=== PATIENT | male | born 1935 | race Caucasian/White ===

== ENCOUNTER 2018-11-07 11:53 | Emergency (ER) | payer MEDICARE ==
[~2018-11-07] VITALS: Ht 175.3 cm; Wt 98.4 kg
[2018-11-07] MEDS ORDERED: CALCTAB89 PO (12:11)
[2018-11-07] MEDS ORDERED: VITA500C24 PO (12:11)
[2018-11-07] MEDS ORDERED: PRAV40TA2 PO (12:11)
[2018-11-07] MEDS ORDERED: FLOM0.4C39 PO (12:11)
[2018-11-07] MEDS ORDERED: FINA5TAB2 PO (12:11)
[2018-11-07] MEDS ORDERED: LIDOCAINE 2% 5ML JELLY UROJET TOP ONE (13:45)
[2018-11-07 14:16] VITALS: BP 129/78
== END 2018-11-07 14:18 | disposition home or self-care (01) ==
LOC: M ED 11:53
DX: R30.0 Dysuria (principal); R33.9 Retention of urine, unspecified; R31.29 Other microscopic hematuria; N40.0 Benign prostatic hyperplasia without lower urinary tract symptoms; I10 Essential (primary) hypertension; I09.9 Rheumatic heart disease, unspecified; Z86.79 Personal history of other diseases of the circulatory system; Z85.820 Personal history of malignant melanoma of skin; Z79.899 Other long term (current) drug therapy; Z88.0 Allergy status to penicillin; Z88.8 Allergy status to other drugs, medicaments and biological substances

== ENCOUNTER 2018-11-11 08:33 | Emergency (ER) | payer MEDICARE ==
[~2018-11-11] VITALS: Ht 175.3 cm; Wt 97.7 kg
[~2018-11-11 08:33] MED LIST: CALCTAB89 PO; FINA5TAB2 PO; FLOM0.4C39 PO; PRAV40TA2 PO; VITA500C24 PO
[2018-11-11] MEDS ORDERED: NS 1,000 ML IV ONE (09:30)
[2018-11-11 09:49] LABS: BASO % 0.2 % (0.0-1.0); EOS # 0.1 10^3/uL (0.0-0.50); EOS % 0.9 % (0.0-3.0); HEMATOCRIT 38.4 % (42.0-52.0); HEMOGLOBIN 13.1 g/dl (13.5-17.5); LYMPH # 1.4 10^3/uL (1.5-4.5); LYMPH % 16.6 % (24.0-44.0); MEAN CORPUSCULAR HEMOGLOBIN 30.1 pg (27.0-33.0); MEAN CORPUSCULAR HGB CONC 34.1 g/dl (32.0-36.5); MEAN CORPUSCULAR VOLUME 88.3 fl (80.0-96.0); MONO # 0.7 10^3/uL (0.0-0.8); NEUTROPHILS # 6.4 10^3/uL (1.8-7.7); PLATELET COUNT, AUTOMATED 210 10^3/uL (150-450); RED BLOOD COUNT 4.35 10^6/uL (4.30-6.10); WHITE BLOOD COUNT 8.7 10^3/uL (4.0-10.0)
[2018-11-11 09:56] LABS: APPEARANCE, URINE CLOUDY (CLEAR); BACTERIA, URINE AUTO 1+ (NEGATIVE); BILIRUBIN, URINE AUTO NEGATIVE (NEGATIVE); BLOOD, URINE BLOOD 3+ (NEGATIVE); COLOR, URINE AMBER (YELLOW); GLUCOSE, URINE (UA) AUTO NEGATIVE (NEGATIVE); KETONE, URINE AUTO TRACE mg/dL (NEGATIVE); LEUKOCYTE ESTERASE, URINE AUTO 3+ (NEGATIVE); MUCUS, URINE SMALL (NEGATIVE); NITRITE, URINE AUTO NEGATIVE (NEGATIVE); PROTEIN, URINE AUTO 2+ mg/dL (NEGATIVE); RBC, URINE AUTO TNTC /HPF (0-3); SPECIFIC GRAVITY URINE AUTO 1.019 (1.002-1.035); SQUAMOUS EPITHELIAL CELL UR AU 0 /HPF (0-6); WBC, URINE AUTO TNTC /HPF (0-3)
[2018-11-11 10:10] LABS: BLOOD UREA NITROGEN 13 MG/DL (7-18); CALCIUM LEVEL 8.6 MG/DL (8.8-10.2); CARBON DIOXIDE LEVEL 28 MEQ/L (21-32); CHLORIDE LEVEL 107 MEQ/L (98-107); CREATININE FOR GFR 0.98 MG/DL (0.70-1.30); GLOMERULAR FILTRATION RATE > 60.0 (>35); GLUCOSE, FASTING 91 MG/DL (70-100); POTASSIUM SERUM 4.2 MEQ/L (3.5-5.1); SODIUM LEVEL 142 MEQ/L (136-145)
[2018-11-11 10:49] LABS: INR 1.09; PROTHROMBIN TIME 13.8 SECONDS (11.8-14.0)
[2018-11-11 13:19] VITALS: BP 113/62
[2018-11-11] MEDS ORDERED: MACR100C43 PO (13:31)
== END 2018-11-11 14:03 | disposition home or self-care (01) ==
LOC: M ED 08:33
DX: N32.89 Other specified disorders of bladder (principal); T83.098A Other mechanical complication of other urinary catheter, initial encounter; X58.XXXA Exposure to other specified factors, initial encounter; Y92.89 Other specified places as the place of occurrence of the external cause; N40.0 Benign prostatic hyperplasia without lower urinary tract symptoms; Z79.899 Other long term (current) drug therapy; Z88.0 Allergy status to penicillin; Z88.1 Allergy status to other antibiotic agents

== ENCOUNTER → 2018-11-29 | Outpatient (CLI) | payer MEDICARE ==
[~2018-11-29] MED LIST changes: +MACR100C43 PO
--- NOTE | 2018-11-29 15:12 | REP ---
Clinical: Benign prostatic hypertrophy with urinary retention. Technique: Real time lawton scale ultrasound examination using curved array transducer. Findings: The kidneys are normal in reniform shape and demonstrate cortical thinning with increased central sinus fat consistent with chronic renal disease. No hydronephrosis, nephrolithiasis, cystic or renal mass lesion appreciated. Right kidney measures 10.3 x 5.9 x 5.9 cm. Left kidney measures 11.7 x 5.7 x 5.6 cm. Valdez catheter identified within the bladder. Prostate gland is heterogeneous and enlarged. Impression: Evidence for chronic medical renal disease. Electronically Signed by Golden Acosta MD 11/29/2018 03:05 P
== END ==
LOC: M RAD 13:29 → M LAB 13:29
PROVIDERS: ATTEND Urology
DX: N40.0 Benign prostatic hyperplasia without lower urinary tract symptoms (principal)
CPT/HCPCS: 36415; 76775; G0103

== ENCOUNTER → 2018-12-13 | Outpatient (CLI) | payer MEDICARE ==
--- NOTE | 2018-12-13 18:37 | REP ---
PROSTATE ULTRASOUND: Real-time sonographic evaluation of the prostate is performed utilizing transrectal probe. The prostate measures 7.4 x 6.3 x 6.1 cm, significantly enlarged, with total volume of 147 mL. Echo texture is diffusely heterogenous. Scattered calcifications and small cysts are noted. Seminal vesicles appear symmetrical. IMPRESSION: Marked enlargement of the prostate. Electronically Signed by Sam Raymond MD 12/15/2018 04:33 P
== END ==
LOC: M SMT PRO 09:51
PROVIDERS: ATTEND Urology
DX: R33.9 Retention of urine, unspecified (principal); N40.1 Benign prostatic hyperplasia with lower urinary tract symptoms
CPT/HCPCS: 76872; G0463

== ENCOUNTER 2019-01-05 10:16 | Day surgery (SDC) | payer MEDICARE ==
[~2019-01-05] VITALS: Ht 188 cm; Wt 90.7 kg
[~2019-01-05 10:16] MED LIST changes: +CALC-333 PO; +COLA100C5 PO; +LIDOCAINE 1% MDV 20ML VIAL SQ PRN; +LR 1,000 ML IV ONE
[2019-01-05] MEDS ORDERED: BUPIVACAINE HCL 0.25% 30 ML VIAL As Ordered ONE (12:15)
[2019-01-05] MEDS ORDERED: LIDOCAINE 1% SDV INJ 30 ML VIAL As Ordered ONE (12:15)
[2019-01-05] MEDS ORDERED: MIDAZOLAM INJ 2 MG/2 ML VIAL (J2250) As Ordered ONE (12:42)
[2019-01-05] MEDS ORDERED: LIDOCAINE 2% INJ 100 MG/5 ML SDV (FOR ANES.) As Ordered ONE (12:42)
[2019-01-05] MEDS ORDERED: fentaNYL 100 MCG/2 ML INJECTION (J3010) As Ordered ONE (12:42)
[2019-01-05] MEDS ORDERED: PROPOFOL 200 MG/20 ML VIAL As Ordered ONE (12:42)
[2019-01-05] MEDS ORDERED: ONDANSETRON 4MG/2ML VIAL (J2405) As Ordered ONE (12:42)
[2019-01-05] MEDS ORDERED: ePHEDrine SULFATE 25 MG/5 ML(5MG/ML) SYRINGE As Ordered ONE (12:45)
--- NOTE | 2019-01-05 13:20 | ROOPDOC ---
[facility] Report Of Operation Report of Operation DATE OF PROCEDURE: 01/05/19 PREPROCEDURE DIAGNOSES: Elevated Prostate Specific Antigen (PSA), Abnormal Prostate Exam. POSTPROCEDURE DIAGNOSES: Elevated Prostate Specific Antigen (PSA), Abnormal Prostate Exam. PROCEDURE: Transrectal Ultrasound-guided Prostate Biopsy. SURGEON: Franklin Maguire MD ENFORCEMENT SAFETY OFFICER: None ANESTHESIA: Monitored Anesthesia Care. OPERATIVE INDICATIONS: This is an 83 year old male with an elevated PSA of 111 and an abnormal prostate exam. Due to severe discomfort while attempting a prostate biopsy in office, it was recommended that he be brought to the operating room to have it done. He is here today for this procedure. DESCRIPTION OF PROCEDURE: The patient was placed in the left lateral position. A transrectal ultrasound probe was placed into the rectum. Subsequently the ultrasonologist measured the dimensions of the prostate. Then 12 core biopsies of the prostate were obtained using a disposable biopsy gun, 6 each from the right and 6 from the left, 2 from the base, 2 from the mid zone and 2 from the apex. There were no complications and the patient tolerated the procedure well. He was taken to the recovery room in stable condition. ESTIMATED BLOOD LOSS: Approximately 5 mL. COMPLICATIONS: None. SPECIMENS: Prostate biopsies. PLAN: The patient will follow up in clinic next week to discuss pathology results. FRANKLIN MAGUIRE MD Jan 05, 2019 13:20
[2019-01-05 14:00] VITALS: BP 97/53
--- NOTE | 2019-01-05 14:12 | REP ---
TRANSRECTAL PROSTATE ULTRASOUND WITH ULTRASOUND GUIDANCE FOR PROSTATE BIOPSY: Real-time sonographic evaluation of prostate performed utilizing transrectal probe. Size of the gland is 8.0 x 4.9 x 6.0 cm for a total volume of 123 mL. Echotexture is diffusely heterogeneous and there are scattered calcifications noted. Seminal vesicles appear symmetrical. Ultrasound guidance was provided for Dr. Nash who performed ultrasound guided biopsy of the prostate. Electronically Signed by Sam Raymond MD 01/10/2019 09:01 A
== END 2019-01-05 14:05 | disposition home or self-care (01) ==
LOC: M SDC 10:16
PROVIDERS: ATTEND Urology
DX: C61 Malignant neoplasm of prostate (principal); E78.5 Hyperlipidemia, unspecified; Z79.899 Other long term (current) drug therapy; Z88.0 Allergy status to penicillin
CPT/HCPCS: 55700; 76872; 76998; G0416; J2250; J2405; J3010

== ENCOUNTER → 2019-01-13 | Outpatient (CLI) | payer MEDICARE ==
[~2019-01-13] MED LIST changes: -LIDOCAINE 1% MDV 20ML VIAL SQ PRN; -LR 1,000 ML IV ONE
[2019-01-13 13:51] LABS: BLOOD UREA NITROGEN 13 MG/DL (7-18); CALCIUM LEVEL 8.6 MG/DL (8.8-10.2); CARBON DIOXIDE LEVEL 27 MEQ/L (21-32); CHLORIDE LEVEL 106 MEQ/L (98-107); CREATININE FOR GFR 0.92 MG/DL (0.70-1.30); GLOMERULAR FILTRATION RATE > 60.0 (>35); GLUCOSE, FASTING 97 MG/DL (70-100); POTASSIUM SERUM 4.5 MEQ/L (3.5-5.1); SODIUM LEVEL 139 MEQ/L (136-145)
== END ==
LOC: M SMT 09:35
PROVIDERS: ATTEND Urology
DX: C61 Malignant neoplasm of prostate (principal)
CPT/HCPCS: 36415; 80048; 96402; G0463; J9155

== ENCOUNTER → 2019-01-20 | Outpatient (CLI) | payer MEDICARE ==
[~2019-01-20] MED LIST changes: +ISOVUE-370 76% 100ML VIAL (Q9967) As Ordered ONE
--- NOTE | 2019-01-20 15:55 | REP ---
REASON FOR EXAM: History of prostate carcinoma. COMPARISON: None. CONTRAST: 100 mL Isovue 370. The lung bases are clear. The liver, gallbladder, spleen, pancreas, adrenal glands, and kidneys are within normal limits. Incidental calcified granulomas are seen in the spleen. The abdominal aorta and paraaortic regions are within normal limits. The bowel loops and their mesenteries are within normal limits. There is no evidence of a mass or adenopathy. There is no free fluid or free air. CT PELVIS: There is a Valdez balloon in the urinary bladder decompressing it. There is prostatomegaly. There is a subtle amount of soft tissue density seen in the pelvis between the anterior wall of the sigmoid colon and the posterior margin of the seminal vesicles midline and slightly to the right of the midline. There is no pelvic adenopathy. Bone window technique throughout the exam shows the osseous structures to be within normal limits for the patient's age. Spinal, hip, and sacroiliac joint degenerative changes are present. IMPRESSION: Findings in the pelvis as described above of uncertain etiology, possibly secondary to recent prostate biopsy and a small amount of hemorrhage. There are no air fluid levels, however. Consider followup. Electronically Signed by Virgil Soni DO 01/20/2019 04:24 P
--- NOTE | 2019-01-20 16:54 | REP ---
REASON: Carcinoma of the prostate gland. There are no priors for comparison. After the intravenous administration of 22.0 millicuries of Technetium 99M MDP a total body bone scan was attempted. There is abnormal increased radionuclide accumulation seen in the proximal right humerus and mid left humerus. Abnormal increased radionuclide accumulation is seen in the region of L3, T10, through T7 with abnormal increased radionuclide accumulation seen in the 9th rib posteriorly on the left and in the anterior right 6th rib. Abnormal focal increased nuclide accumulation is seen in the region of the right hemipelvis at the base of the superior pubic ramus with abnormal increased radionuclide accumulation seen in the proximal femur bilaterally. IMPRESSION:Multiple foci of abnormal increased radionuclide accumulation consistent with metastatic disease. Electronically Signed by Virgil Soni DO 01/23/2019 02:24 P
== END ==
LOC: M RAD 09:20
PROVIDERS: ATTEND Urology
DX: C61 Malignant neoplasm of prostate (principal)
CPT/HCPCS: 74177; 78306; A9503; Q9967

== ENCOUNTER → 2019-01-25 | Outpatient (CLI) | payer MEDICARE ==
[~2019-01-25] MED LIST changes: -ISOVUE-370 76% 100ML VIAL (Q9967) As Ordered ONE; +XTAN40CA PO
== END ==
LOC: M SMT 14:46
PROVIDERS: ATTEND Urology
DX: C61 Malignant neoplasm of prostate (principal)
CPT/HCPCS: 36415; 84153; G0463

== ENCOUNTER → 2019-07-17 | Outpatient (REF) | payer MEDICARE ==
[2019-07-17 09:19] LABS: CHOLESTEROL RISK RATIO 3.235 (<5)
[2019-07-17 10:20] LABS: TOTAL 25(OH) VITAMIN D 36.7 NG/ML (30.0-100.0)
== END ==
LOC: M LAB REF 08:30
PROVIDERS: ATTEND Family Medicine
DX: E55.9 Vitamin D deficiency, unspecified (principal); E78.00 Pure hypercholesterolemia, unspecified